=== PATIENT | female | born 1935 ===

== ENCOUNTER 2023-04-24 05:50 | Day surgery (SDC) | payer OTHER ==
[2023-04-21 11:30] LABS: HEMATOCRIT 41.3 % (36.0-45.00); HEMOGLOBIN 14.4 g/dL (12.0-15.00); MEAN CELL VOLUME 93.1 fL (80.00-100.00); MEAN CORPUSCULAR HEMOGLOBIN 32.5 pg (27.00-32.0); MEAN CORPUSCULAR HGB CONC 34.9 g/dl (32.0-36.0); PLATELET COUNT 172 K/uL (150-450); RED BLOOD COUNT 4.43 M/uL (4.00-6.00); RED CELL DISTRIBUTION WIDTH 13.6 % (11.5-14.5)
[2023-04-21 11:40] LABS: PH,URINE 5.5 (5.0-8.0); URINE APPEARANCE Clear; URINE BILIRRUBIN Negative (NEGATIVE); URINE BLOOD Negative; URINE COLOR Yellow; URINE GLUCOSE Negative (NEGATIVE); URINE LEUKOCYTE Trace; URINE NITRATE Negative; URINE PROTEIN Negative (NEGATIVE); URINE UROBILINOGEN 0.2 E.U./dl
[2023-04-21 11:45] LABS: URINE BACTERIA 8.4 uL (0.0-1933); URINE RBC 2.6 uL (0.0-20.8)
[2023-04-21 11:48] LABS: INR 1.07; PARTIAL THROMBOPLASTIN TIME 32.2 SECONDS (22.0-34.0); PROTHROMBIN TIME 11.2 SECONDS (9.0-11.5)
[2023-04-21 12:00] LABS: ALBUMIN 3.7 gm/dL (3.4-5.0); BILIRUBIN TOTAL 0.48 mg/dL (0.3-1.2); CALCIUM 8.7 mg/dL (8.5-10.1); CREATININE SERUM 0.45 mg/dL (0.55-1.02); GFR 132.11; GLOBULINA 3.3 G/DL (2.4-3.5); POTASSIUM 4.21 mEq/L (3.5-5.1)
[2023-04-21 12:23] LABS: URINE EPITHELIAL CELLS 1.2 uL (0.0-38.8)
[~2023-04-24] VITALS: Ht 152.4 cm; Wt 45.4 kg
[~2023-04-24 05:50] MED LIST: B12 ACTIVE1000 MCG PO; CHILDREN'S ASPI81 MG PO; CITALOPRAM HBR20 MG PO; ESTR0.624 PO; FOLIC ACID0.8 M1 PO; LANSOPRAZOLE15 MG PO; SYNTHROID75 MCG PO; ZOCOR20 MG PO
== END 2023-04-24 12:15 | disposition home or self-care (01) ==
LOC: CIR.AMB 05:50
PROVIDERS: ATTEND Obstetrics & Gynecology
DX: N95.0 Postmenopausal bleeding (principal); Z91.041 Radiographic dye allergy status; Z20.822 Contact with and (suspected) exposure to COVID-19; I10 Essential (primary) hypertension; E78.5 Hyperlipidemia, unspecified; E03.9 Hypothyroidism, unspecified